=== PATIENT | male | born 1950 | race Two or more races ===

== ENCOUNTER → 2018-12-14 | Outpatient (CLI) | payer OTHER | END | disposition home or self-care (01) | LOC: RAD 501 15:38 | DX: M25.561 Pain in right knee (principal) ==

== ENCOUNTER 2023-01-08 09:57 | Outpatient (CLI) | payer OTHER | END 2023-01-08 09:58 | disposition home or self-care (01) | LOC: LAB 09:57 | PROVIDERS: ATTEND Orthopaedic Surgery | DX: M85.9 Disorder of bone density and structure, unspecified (principal); E83.42 Hypomagnesemia; E56.1 Deficiency of vitamin K; E88.89 Other specified metabolic disorders; M81.8 Other osteoporosis without current pathological fracture ==